=== PATIENT | male | born 1960 | race Caucasian/White ===

== ENCOUNTER → 2020-07-09 10:13 | Outpatient (CLI) | payer BC, SELFPAY ==
[2020-07-09 11:05] LABS: COVID19 -Nasal RAPID Negative (Negative)
== END ==
PROVIDERS: Visit Provider Student in an Organized Health Care Education/Training Program
DX: Z01.812 Encounter for preprocedural laboratory examination (principal); Z20.822 Contact with and (suspected) exposure to COVID-19
CPT/HCPCS: 87635

== ENCOUNTER 2020-07-11 08:27 | Day surgery (SDC) | payer BC, SELFPAY ==
[2020-07-05 08:57] VITALS: BMI 32.3
[2020-07-11] VITALS (13 sets, daily range): BP systolic 107–152; BP diastolic 63–87; PULSE 56–83; RESP 12–17; TEMP 36.2–36.9; O2SAT 95–98; BMI 31.5
--- NOTE | 2020-07-11 07:35 | DI.RAD.S_ITS ---
PROCEDURE: XR KNEE RT 1TO2V INDICATIONS: total right knee TECHNIQUE: 2 view(s) of the knee acquired. COMPARISON: None. FINDINGS: Bones: Patient is status post knee joint arthroplasty. Hardware components are in expected positions. Visualized bony structures are intact. Soft tissues: Overlying postoperative changes are noted. IMPRESSION: Expected alignment Dictated by: Jagdish Campos M.D. on 07/11/2020 at 13:34 Approved by: Jagdish Campos M.D. on 07/11/2020 at 13:34
[2020-07-11] MEDS: ACETAMINOPHEN 325 MG TABLET 975 MG PO (09:17)
[2020-07-11] MEDS: CELECOXIB 200 MG CAPSULE PO (09:18)
[2020-07-11] MEDS: LACTATED RINGERS 1,000 ML 42 ML IV ×2 (09:25→11:58)
--- NOTE | 2020-07-11 09:57 | PM.PREOP ---
Pre-operative Note COVID-19 COVID-19 status: Negative Result date/Date tested (Pos, Neg/Pending): 07/09/20 Interval Note History & Physical reviewed/Exam performed by Physician: Yes Changes to H&P: No H&P completed within 30 days and has changed as indicated here:: Plan for R TKA
--- NOTE | 2020-07-11 10:21 | SUR.PREOP ---
[] 1006 - Monitoring initiated and maintained throughout procedure. O2 at 2LNC per Dr Arteaga instructions. Medications given by Dr Arteaga. 1012 - Time out completed for right adductor canal block. 1017 - Injection time. 1018 - Block complete. Patient remained stable throughout procedure. No adverse reactions noted.
[2020-07-11] MEDS: TRANEXAMIC ACID 1,000 MG VIAL 2000 MG INJ ×2 (10:50→12:18)
[2020-07-11] MEDS: CEFAZOLIN 1 GM VIAL 2 GM IV ×2 (10:52→18:54)
--- NOTE | 2020-07-11 11:03 | SUR.OPER ---
Supine on padded OR bed. Pillow under head, arms secured on padded armboards <90 degree abduction. Safety belt across torso. Non-operative leg, Left, secured with tape over blanket over lower leg. Gel pad under Left heel. Operative leg, Right, in control of the surgeon. Dr. Fink padded knee positioner used. Foam padded brace at thigh of operative leg, Right side.
--- NOTE | 2020-07-11 11:11 | PM.PROC.1 ---
Procedures Date/Time Date of procedure: 07/11/20 Time of procedure: 10:10 General Procedure description: Ultrasound guided adductor canal nerve block for post op pain control after right total knee arthroplasty by Dr. Fink. Risk and benefits of procedure discussed with patient. ASA monitoring applied to patient. O2 given via nasal cannula. 2 mg Versed and 100 mcg fentanyl given for procedural sedation. Skin site was prepped with chlorhexidine and allowed to fully dry. Sterile gloves, mask, hat and probe cover were used to maintain sterility. 2% lidocaine and 30ga needle was used to make a small skin wheal at needle insertion site. Under ultrasound guidance, a 21ga 100mm Pajunk needle was directed into the adductor canal near femoral artery and saphenous nerve at the level of mid thigh. Patient reported no parasthesias. After negative aspiration, 20 mL 0.5% ropivicaine and 10mg dexamethasone were injected around saphenous nerve. Patient tolerated procedure well.
[2020-07-11] MEDS: KETOROLAC 30 MG/ML VIAL IV (11:12)
[2020-07-11] MEDS: MORPHINE 4 MG/ML INJ INJ (11:12)
[2020-07-11] MEDS: ROPIVACAINE 0.5% PF 5 MG/ML 20ML VIAL 10 ML INJ (11:14)
[2020-07-11] MEDS: POVIDONE-IODINE SPONGE STICKS 1 APPLIC TOP (11:18)
--- NOTE | 2020-07-11 12:29 | PM.OP.1 ---
Operative Date/Time/Diagnoses Date of procedure: 07/11/20 Time of procedure: 12:29 Pre-op diagnosis: right knee OA Post-op diagnosis: same Procedure & Clinicians Procedure: Right total knee arthroplasty Same procedure as scheduled: Yes Indications: Right knee osteoarthritis resistant to further conservative measures Surgeon: Merlin Fink Vacuum Tank Tender: Juan Alberto Ramirez Anesthesia Type: General and Spinal Operative Notes Findings: Right knee osteoarthritis with overall valgus alignment. [id number] articulation of the lateral compartment as well as the patellofemoral compartment. Large osteophytes throughout the knee. Closure Type: primary Specimen(s): none sent Prosthetic devices, grafts, tissues, transplants, or devices: Hernández and nephew Journey 2 BCS right size 6 femur Right size 7 journey tibial base plate Right size 7-8 9 mm thick Journey 2 BCS polyethylene 32 mm oval Josefina 2 patellar button Estimated Blood Loss (mL): 100 Blood products transfused: none Tourniquet time (min): 58 Procedure in detail: Patient was met in the preoperative holding area where the site and side of surgery marked by . Informed consent had been reviewed in clinic but was not translated over the hospital therefore informed consent was again reviewed the preoperative holding area all last minute questions were answered informed consent was signed. Patient was then brought back into the operating room where he was induced under general anesthesia a nonsterile tourniquet was placed on the right thigh and the right lower extremity then prepped and draped in normal sterile fashion. A surgical time-out was performed verifying the site and side of surgery as well as the name of the patient. The right lower extremity was then exsanguinated using Esmarch and tourniquet was inflated 250 mmHg. A curvilinear incision over the anterior aspect of the knee which incorporated a prior medial incision was made in the skin using 10. Blade. A large lateral flap was then elevated and then the medial parapatellar arthrotomy was then performed. Hoffa's fat pad was removed it was noted that quite a bit of the patellar tendon Hoffa's fat pad was scarred down to the anterior aspect the tibia this was freed up. A medial peel was then performed. The ACL and PCL were then removed after removing osteophytes from the intercondylar notch using an osteotome. [place]'s line was then marked using electrocautery. A drill was then used to enter the femoral and tibial canals respectively. Intramedullary miri was then placed inside the femur and the 5 degree cutting block was placed on for the right side. This was pinned in neutral position initial cut was deemed to be too small and so 2 mm extra were taken from the distal femur cut. Next intramedullary miri was then placed inside the tibial canal and the outrigger was then used to place the tibial cutting jig drop miri was used to verify varus valgus alignment this was pinned into place. The tibial cut was then performed and the tibial piece was then removed. Medial meniscus was then removed this point. The lateral meniscus had been removed during prior surgeries. The knee was brought into full extension and 9 mm extension block fit the extension space nicely. The was then brought into flexion and the gap bedspread cutter hand was then used and compared to Whitesides line. This was then drilled for a size 3-10 blocks. Gap bedspread cutter hand was then removed and the sizing block was then placed size the femur was sized to size 6. The drill holes were then compared to the Sizer block drill holes these were similar. The size 6 5 in 1 cutting block was then malleted onto the femur and pinned in place. The 5 in 1 cuts were then made sequentially. After this was completed the cutting block was removed bony fragments removed the size 6 right trial was then placed on the femur and the notch was then prepared for the PCS component. Once this was completed the gait was placed inside the intercondylar notch and a size 6 tibial base plate with a 9 mm thick polyethylene was then trialed. Knee had good stability through extension mid flexion and flexion range of motion. Knee was able to achieve full extension. Tibial base plate rotation was marked using a floating technique. The patella was then cut using a freehand technique and sized to size 32 mm patellar button this was then drilled for and a trial button was placed the knee was brought through range of motion with good patellar tracking. All trial components were then removed the tibial base plate was then replaced and was noted this time that we could upsize to a size 7 tibial base plate a size 7 tibial base plate was then selected and pinned into place and the keel was then drilled and punched for. Local anesthetic was then infiltrated in the periarticular soft tissues. Pulse lavage was then used to clean the cut surfaces of the femur tibia and patella. These were then thoroughly dried. Cement was then mixed. Cement was then finger packed into the keel hole as well as the cut surface of the tibia and the underside of the tibial base plate this was then malleted into place and excess cement was removed. Cement was then packed onto the cut surface of the femur with exception the posterior condylar cut and cement was placed onto the feet of the femoral component malleted into place excess cement was then removed. The trial size 9 thick the CS was then placed knee was brought into full extension ankles held in internal rotation cement was then packed on the cut surface of the patella as well as placed in the patellar button the patellar button was then clamped into place and excess cement was removed. At this point Betadine solution was placed into the knee the tourniquet was let down at 58 minutes of time. After several minutes the Betadine solution was lavaged with copious normal saline the cement was allowed to fully cure prior to manipulation of the knee. Once cement was fully cured we looked for any excess cement none was found. We had good stability with this size 9 thick polyethylene and a size 7 right 9 mm thick B CS polyethylene was selected and placed onto the tibia making sure that the medial and lateral tabs were well engaged. Hemostasis was achieved using electrocautery. The medial parapatellar arthrotomy was closed using 1. Vicryl in an interrupted fashion followed by running Quill suture followed by 2 Vicryl in interrupted fashion subcutaneous layer followed by running 3-0 Stratafix and subcuticular layer followed by Dermabond and Aquacel dressing. Complications: none Post-operative Condition: stable Disposition: PACU Plan for aftercare: 24 hours post-op abx, WBAT RLE, ASA 81mg BID for 6 weeks for DVT prophylaxis
--- NOTE | 2020-07-11 13:23 | SUR.PHASEI ---
Pt transfered to room 204 via bed. Pt alert, oriented. Handover at bedside to Elisha THOMAS. Bed in low position. Call light in place. Dressing clean, dry and intact.
[2020-07-11] MEDS: LACTATED RINGERS 1,000 ML 100 ML IV ×2 (13:37→22:34)
[2020-07-11] MEDS: IBUPROFEN 400 MG TABLET PO ×3 (13:39→21:15)
[2020-07-11] MEDS: ACETAMINOPHEN 325 MG TABLET 650 MG PO ×2 (14:38→21:14)
--- NOTE | 2020-07-11 17:00 | PT.IIE ---
Current Diagnoses Unilateral primary osteoarthritis, right knee (07/11/20) Surgery Performed Operation Date: 07/11/20 10:45 Actual Procedures p Total Knee Arthroplasty(Right) - Merlin Fink MD Surgical History (Last Updated 07/05/20 @ 09:12 by Torri Hernandez RN) History of repair of rotator cuff History of vasectomy Hx of arthroscopy of left knee Hx of knee surgery (1968) Hx of tonsillectomy Medical History (Last Updated 07/05/20 @ 09:10 by Torri Hernandez RN) HLD (hyperlipidemia) HTN (hypertension) Osteoarthritis Physical Therapy Inpatient Evaluation/Re-Eval M1 PT/OT-IP Prior Functional Status Start: 07/11/20 18:05 Freq: NEEDED Status: Active Protocol: Document 07/11/20 17:00 AB (Rec: 07/11/20 18:17 AB [id number]) Medical Review Prior Functional Status Medical History Reviewed Yes Communication able to make needs known Mobility and Gait pt stated that he is independent with all mobilities and ambulation without AD Social History Household Members spouse Living Arrangements House Number of Floors (Floors) One Floor Number of Stairs To Enter/Railing? 3 steps to enter without rails Home Environment Standard Height Toilet,Walk in Shower,Tub/Shower Home Equipment Four Wheel Walker,Straight Cane,Crutches Employment Status Data Entry Employed Additional Social History Comment stated that he works in [employer] office pt prefers to use his crutches for mobility M2 PT-IP Current Condition Start: 07/11/20 18:05 Freq: NEEDED Status: Active Protocol: Document 07/11/20 17:00 AB (Rec: 07/11/20 18:17 AB [id number]) Physical Therapy Current Condition Current Condition Evaluation Date 07/11/20 Treatment Diagnosis s/p R TKA; difficulty in walking Onset Date 07/11/20 Weight Bearing Status Weight Bearing Status Weight Bear as Tolerated Allowed Weight Bearing Amount (enter % RLE WBAT or #) (%) M3 PT-IP Subjective Start: 07/11/20 18:05 Freq: NEEDED Status: Active Protocol: Document 07/11/20 17:00 AB (Rec: 07/11/20 18:17 AB [id number]) Subjective Physical Therapy Visit Type Type Initial Evaluation Visit Start Time 17:00 Visit Stop Time 18:00 Total Visit Minutes 60 Number of SPRING SALVAGE WORKER Visits 0 Physical Therapy Visit Comments Patient Comments agreed to do PT; spouse in room Therapy Pain Assessment Pain When Pain Assessed At Rest Pain Present Pain Present Pain Reported Location right knee Intensity 1 Scale Used Numeric (0 - 10) Pain Management Techniques Apply Cold,Distraction, Elevation,Modification of Treatment,Timing of Activity with Medications M4 PT-IP Mobility and Gait Start: 07/11/20 18:05 Freq: NEEDED Status: Active Protocol: Document 07/11/20 17:00 AB (Rec: 07/11/20 18:17 AB [id number]) PT-Bed Mobility Assessment Supine to Sit Supine to Sit Standby Assistance Sit to Supine Sit to Supine Standby Assistance PT-Transfer Assessment Sit to and From Stand Sit to and from Stand Minimal Assistance,1 Person Assistance,Use of Upper Extremities Equipment Transfer Assistive Device Front Wheeled Walker Orthotic/Prosthetic Devices or Brace: No Transfers Transfer Destination Toilet Transfer Technique ambulated using FWW Transfer Ability Level of Assist Minimal Assistance,1 Person Assistance,Use of Upper Extremities Comments Mobility Comments pt stated that he has sensation on BLE but with slight numbness but able to move LE. completed supine to sit SBA. able to sit on EOB SBA. educated on safety and techniques for sit to stand and quads activation in standing. completed sit to stand min A. pt ambulated to the toilet using FWW min A and cues. pt was able to stand using FWW while using the toilet min A. ambulated back to bed using FWW min A. pt went back to bed SBA for sit to supine. positioned in bed. call light and table placed within reach. ice pack provided. reviewed post-op folder with pt. set up caregiver training with pt and spouse for tomorrow @ 930 am . Gait Assessment Gait Gait Assistance Required: Minimum Assistance Distance (Feet) 15 Able to Maintain Weight Bearing Status Yes During Gait Assistive Devices Assistive Device Gait Belt,Front Wheeled Walker Orthotic/Prosthetic Devices or Brace: No Gait Deviations General Gait Pattern Antalgic,Decreased Stride Length,Decreased Feet Clearance Factors Limiting Gait Function Factors Limiting Gait Function Decreased Activity Tolerance, Decreased Sensation,Decreased Strength,Limited Range of Motion,Pain,Poor Balance Comments Gait Comments pls refer to mobility section for details PT-Balance Assessment Sitting Balance and Reactions Static Sitting Balance Ability Good Dynamic Sitting Balance Ability Good Standing Balance and Reactions Static Standing Balance Ability Fair Dynamic Standing Balance Ability Fair Device Used FWW M5 PT-IP Objective Assessments Start: 07/11/20 18:05 Freq: NEEDED Status: Active Protocol: Document 07/11/20 17:00 AB (Rec: 07/11/20 18:17 [id number]) Orientation Orientation/Cognition Level of Alertness Alert Orientation Name,Age,Birthday,Month,Date, Year,Day of Week,Place, Situation Language Function Ability No Deficits Noted Safety Awareness Understands Safety Issues Memory Description No Deficits Noted Gross Range of Motion Lower Extremity ROM Assessment Right Impaired Impairments R knee flexion: ~ 90 deg R knee extension: ~ 10 deg less to 0 Strength Lower Extremity Strength Assessment Right Impaired Hip 4+/5 Knee 4-/5 Coordination Assessment Gross Coordination Gross Coordination WNL Sensation Assessment Sensation Gross Sensation Right LE Impaired Sensation Description Numbness Comments Sensation Comments still c/o slight numbness on RLE Muscle Tone Muscle Tone WNL Yes M6 PT-IP Treatment Start: 07/11/20 18:05 Freq: NEEDED Status: Active Protocol: Document 07/11/20 17:00 AB (Rec: 07/11/20 18:17 [id number]) Physical Therapy Treatment Exercises Exercises Heel Slides Education Education Provided Precautions,Weight Bearing Status,Post-Op Packet,Safety M7 PT-IP Assessment and Plan Start: 07/11/20 18:05 Freq: NEEDED Status: Active Protocol: Document 07/11/20 17:00 AB (Rec: 07/11/20 18:17 [id number]) PT Summary Assessment and Plan Potential Rehabilitation Potential Good Status of Condition at Evaluation Stable Summary Impairments Pain,ROM,Strength,Balance, Coordination,Sensation,Tone, Cognition,Bed Mobility, Transfers,Gait,Activity Tolerance Assessment Summary pt requiring min A with mobility using FWW. still has slight numbness on RLE but was able to ambulate using FWW ~ 15 ft. caregiver training set up at 930 am tomorrow with spouse. will also complete stair climbing training. pt prefers to use his crutches for ambulation and spouse will them tomorrow and will assess safety with use of crutches as well tomorrow. Goals Bed Mobility Goal Independent Transfer Goal Independent,Crutches,Front Wheeled Walker Gait Goal Independent,Crutches,Front Wheel Walker Gait Distance 150 Other Goals up/down 3 steps using crutches SBA Days to Meet Goals 3 Frequency of Treatment Frequency Of Treatment Twice a Day Treatment Plan Physical Therapy Treatment Plan Bed Mobility Training,Transfer Training,Gait Training, Therapeutic Exercise,Balance Retraining,Post Op Education, Discharge Planning,Hot or Cold Pack,Neuromuscular Re-ed, Coordination Retraining,Manual Therapy Other Recommendations and Next Treatment caregiver training 07/12 @ 930 Focus am Precautions Other Precautions RLE WBAT Recommendations To Nursing Amount of Assist Needed 1 Person Assist Discharge Recommendations PT Discharge Recommendations Home with Assistance, Outpatient PT Transportation Needs at Discharge Private Vehicle
--- NOTE | 2020-07-11 20:07 | PC.NURSE ---
pt unable to void. bladder scan 340cc. in and out cath if pt unable to void and bladder scan is 400cc or greater.
[2020-07-11] MEDS: ASPIRIN EC 81 MG TABLET PO (21:15)
[2020-07-11] MEDS: DOCUSATE 100 MG CAPSULE PO (21:15)
[2020-07-11] MEDS: ATORVASTATIN 20 MG TABLET 10 MG PO (21:15)
[2020-07-12] MEDS: IBUPROFEN 400 MG TABLET PO ×3 (00:09→08:43)
[2020-07-12 00:30] VITALS: BP 103/72; PULSE 80; RESP 16; TEMP 36.9; O2SAT 96
[2020-07-12] MEDS: CEFAZOLIN 1 GM VIAL 2 GM IV (02:45)
[2020-07-12 04:12] VITALS: BP 135/82; PULSE 77; RESP 16; TEMP 36.3; O2SAT 97
[2020-07-12 04:22] LABS: Hematocrit 40.8 % (41-53); Hemoglobin 13.8 g/dL (13.5-17.5)
[2020-07-12 07:30] VITALS: BP 127/78; PULSE 70; RESP 16; TEMP 36.7; O2SAT 96
--- NOTE | 2020-07-12 07:31 | PM.DS.1 ---
History of Present Illness History of Present Illness Date Patient Seen: 07/12/20 Time Patient Seen: 07:31 Chief complaint: OPB Narrative: Patient's pain is mild. Denies fever or chills. No nausea/ vomiting. Discharge Providers Provider Discharge Date: 07/12/20 Consults: 07/11/20 07:33 Consult to Anesthesiology Routine Comment: Consulting Provider: Anesthesiologist Reason for consultation: Regional block for post operative pain control 07/11/20 13:26 Consult to Discharge Planning Routine Comment: Consult to Physical Therapy Evaluate & Treat Comment: Physician Instructions: postop TKA protocol Consult to Respiratory Therapy Evaluate & Treat Comment: Physician Instructions: Evaluate and treat Discharge provider: Juan Alberto Ramirez PA-C Summary Hospital Course Discharge Diagnosis: Right knee OA Hospital Course: Right total knee arthroplasty Same procedure as scheduled: Yes Indications: Right knee osteoarthritis resistant to further conservative measures Surgeon: Merlin Fink Journeyman Powerhouse Operator: Juan Alberto Ramirez Anesthesia Type: General and Spinal Operative Notes Findings: Right knee osteoarthritis with overall valgus alignment. [id number]-[id number] articulation of the lateral compartment as well as the patellofemoral compartment. Large osteophytes throughout the knee. Closure Type: primary Specimen(s): none sent Prosthetic devices, grafts, tissues, transplants, or devices: Hernández and nephew Journey 2 BCS right size 6 femur Right size 7 journey tibial base plate Right size 7-8 9 mm thick Journey 2 BCS polyethylene 32 mm oval Josefina 2 patellar button Estimated Blood Loss (mL): 100 Blood products transfused: none Tourniquet time (min): 58 Patient admitted to the hospital for right total knee arthroplasty. Patient consented to the same. Patient taken to the operating room underwent right total knee arthroplasty. Patient back in his room recovering well as in stable condition. Pain is well controlled. Patient does have assistance at home. Patient will be discharged home today in stable condition. Status at Discharge Cognitive/behavioral status at discharge: at baseline, oriented Functional status at discharge: uses cane/walker Overall status at discharge: patient is progressing back to baseline Exam Vital Signs (past 8 hours): - 07/12/20 00:30 07/12/20 04:12 Temperature 98.5 F 97.4 F L Pulse Rate 80 77 Respiratory Rate 16 16 Blood Pressure 103/72 135/82 Pulse Oximetry 96 97 Oxygen Delivery Method Room Air Oxygen Flow Rate 0 Narrative Exam Narrative: 60-year-old male resting comfortably in bed in no apparent distress. Right knee dressing is clean dry intact.. Motor functions intact bilateral lower extremities. Sensation grossly intact to light touch bilateral lower extremities. Objective Labs Result Diagrams: 07/12/20 04:00 Labs: Laboratory Results - last 24 hr 07/12/20 04:00 Hgb 13.8 Hct 40.8 L PFSH Medical History (Updated 07/05/20 @ 09:10 by Torri Hernandez RN) HLD (hyperlipidemia) HTN (hypertension) Osteoarthritis Surgical History (Updated 07/05/20 @ 09:12 by Torri Hernandez RN) History of repair of rotator cuff History of vasectomy Hx of arthroscopy of left knee Hx of knee surgery (1968) Hx of tonsillectomy Social History household members: spouse Smoking Status: Never smoker alcohol intake: current Discharge Assessment & Plan Assessment and Plan Assessment: Patient progressing as expected status post right total knee arthroplasty. Plan of Treatment: Discharge home today in stable condition. Discharge Plan Discharge Plan Patient Disposition: Home Discharge orders & Medications Discharge Orders: Discharge (Order); Ordered 07/12/20 Ordered By: Juan Alberto Ramirez Prescriptions: New acetaminophen 325 mg Tablet 650 mg PO TID Qty: 60 RF: 0 aspirin 81 mg Tablet,Delayed Release (Dr/Ec) 81 mg PO BID Qty: 60 RF: 0 docusate sodium [DOK] 100 mg Capsule 100 mg PO BID Qty: 10 RF: 0 ibuprofen 400 mg Tablet 400 mg PO Q4HR Qty: 60 RF: 0 oxycodone 5 mg Tablet 5 mg PO Q3HR PRN (Reason: Pain, Moderate (4-6)) Qty: 60 RF: 0 Continued sildenafil 25 mg Tablet 25 mg PO DAILY PRN (Reason: Sexual Activity) RF: 0 simvastatin 20 mg Tablet 20 mg PO BEDTIME RF: 0 hydrochlorothiazide 25 mg Tablet 37.5 mg PO QAM RF: 0 lisinopril 40 mg Tablet 40 mg PO DAILY RF: 0 magnesium oxide 400 mg magnesium Tablet 400 mg PO DAILY RF: 0 Discontinued ibuprofen 200 mg Tablet 400 mg PO DAILY RF: 0 Follow up/Referrals: Merlin Fink MD [Physician] - (2 wks) Diet/Activity/Treatments Diet: Diet as Tolerated Activity: Weight-bearing as tolerated Cold/Heat Therapy: Apply ice to the knee as needed Skin/Wound/Dressing Care Report to your healthcare provider any signs of infection, such as:: chills, fever, increased pain, unusual drainage and unusual redness Dressing: Keep clean and dry. May remove Isaac wrap in 24-48 hours. Leave dressing in place Visit Report/Discharge Packet Instructions: DI for Knee Replacement Stand Alone Forms: Surgery Discharge Discharge Data Attending Provider: Merlin Fink
[2020-07-12] MEDS: MAGNESIUM OXIDE 400 MG TABLET PO (08:41)
[2020-07-12] MEDS: hydroCHLOROthiazide 25 MG TABLET 37.5 MG PO (08:41)
[2020-07-12 08:42] VITALS: BP 143/76; PULSE 97
[2020-07-12] MEDS: DOCUSATE 100 MG CAPSULE PO (08:42)
[2020-07-12] MEDS: lisinopriL 20 MG TABLET 40 MG PO (08:42)
[2020-07-12] MEDS: ASPIRIN EC 81 MG TABLET PO (08:42)
[2020-07-12] MEDS: OXYCODONE IR 5 MG TABLET PO (08:43)
[2020-07-12] MEDS: ACETAMINOPHEN 325 MG TABLET 650 MG PO (08:43)
--- NOTE | 2020-07-12 08:55 | CM.DANOTE ---
DCP: Case received, EMR reviewed and met with patient. Introduced self and role. Was able to obtain information from patient regarding his baseline activity status prior to his surgery, as well as his current living situation. DCP assessment completed with information currently available. Patient is a 60 year old male who admitted yesterday morning to the care of the orthopedic team. PCP: Nava Yepez, [facility]. Payer: confirmed: [facility] Out of [facility]. Patient came to the hospital via private vehicle for a surgical procedure. He had right total knee arthroplasty. Patient has had history of right knee pain secondary to advanced osteoarthritis. Met with patient in his room. He was sitting up in bed, alert and oriented. Confirmed with him that he resides in [facility] with his spouse, Hilda. He is independent at his baseline, and has been able to drive prior to surgery. Patient also indicated that he does have crutches, has not been using. He lives in a one level home. P: Patient is to be discharged home today after working with P.T. He will be going to outpatient P.T. in [facility]. Adrienne Quesada RN/Catalyst Operator
--- NOTE | 2020-07-12 09:35 | PT.IPTN ---
Current Diagnoses Unilateral primary osteoarthritis, right knee (07/11/20) Surgery Performed Operation Date: 07/11/20 10:45 Actual Procedures p Total Knee Arthroplasty(Right) - Merlin Fink MD Physical Therapy Treatment Note M2 PT-IP Current Condition Start: 07/11/20 18:05 Freq: NEEDED Status: Discharge Protocol: Document 07/11/20 17:00 AB (Rec: 07/11/20 18:17 AB [id number]) Physical Therapy Current Condition Current Condition Evaluation Date 07/11/20 Treatment Diagnosis s/p R TKA; difficulty in walking Onset Date 07/11/20 Weight Bearing Status Weight Bearing Status Weight Bear as Tolerated Allowed Weight Bearing Amount (enter % RLE WBAT or #) (%) M3 PT-IP Subjective Start: 07/11/20 18:05 Freq: NEEDED Status: Discharge Protocol: Document 07/12/20 09:35 AB (Rec: 07/12/20 12:05 AB [email or web address]) Subjective Physical Therapy Visit Type Type Treatment Note Visit Start Time 09:35 Visit Stop Time 10:05 Total Visit Minutes 30 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 Physical Therapy Visit Comments Patient Comments pt is agreeable to do PT; spouse in room Therapy Pain Assessment Pain When Pain Assessed At Rest Pain Present Pain Present Pain Reported Location right knee Intensity 4 Scale Used Numeric (0 - 10) Pain Management Techniques Apply Cold,Modification of Treatment,Re-positioning, Timing of Activity with Medications M4 PT-IP Mobility and Gait Start: 07/11/20 18:05 Freq: NEEDED Status: Discharge Protocol: Document 07/12/20 09:35 AB (Rec: 07/12/20 12:05 AB [email or web address]) PT-Transfer Assessment Sit to and From Stand Sit to and from Stand Standby Assistance Equipment Transfer Assistive Device Gait Belt,Axillary Crutches Orthotic/Prosthetic Devices or Brace: No Comments Mobility Comments pt up and ambulating with FWW in room with spouse. spouse was able obtain FWW for pt but pt still wants to use crutches. adjusted crutches. pt completed sit to stand SBA using crutches and ambulated in the hallway 125 ft SBA. completed up/down steps using crutches SBA. ambulated back to room. caregiver training: educated spouse on providing SBA to pt for safety and agreed. pt is cautious during mobility. pt and spouse with no concerns . Gait Assessment Gait Gait Assistance Required: Standby Assistance Distance (Feet) 125 Able to Maintain Weight Bearing Status Yes During Gait Assistive Devices Assistive Device Gait Belt,Axillary Crutches Orthotic/Prosthetic Devices or Brace: No Gait Deviations General Gait Pattern Decreased Stride Length, Decreased Feet Clearance,Step- to Gait Factors Limiting Gait Function Factors Limiting Gait Function Decreased Activity Tolerance, Decreased Sensation,Decreased Strength,Limited Range of Motion,Poor Balance Stair Climbing Assessment Evaluation Level of Assist On Stairs Standby Assistance Devices Stair Climbing Assistive Devices Axillary Crutches Technique/Endurance Stair Climbing Direction Ascend and Descend Stair Climbing Technique Step to Step Number of Steps Climbed 3 Stair Climbing Set # Repetitions (reps) 1 M5 PT-IP Objective Assessments Start: 07/11/20 18:05 Freq: NEEDED Status: Discharge Protocol: Document 07/11/20 17:00 AB (Rec: 07/11/20 18:17 AB [id number]) Orientation Orientation/Cognition Level of Alertness Alert Orientation Name,Age,Birthday,Month,Date, Year,Day of Week,Place, Situation Language Function Ability No Deficits Noted Safety Awareness Understands Safety Issues Memory Description No Deficits Noted Gross Range of Motion Lower Extremity ROM Assessment Right Impaired Impairments R knee flexion: ~ 90 deg R knee extension: ~ 10 deg less to 0 Strength Lower Extremity Strength Assessment Right Impaired Hip 4+/5 Knee 4-/5 Coordination Assessment Gross Coordination Gross Coordination WNL Sensation Assessment Sensation Gross Sensation Right LE Impaired Sensation Description Numbness Comments Sensation Comments still c/o slight numbness on RLE Muscle Tone Muscle Tone WNL Yes M6 PT-IP Treatment Start: 07/11/20 18:05 Freq: NEEDED Status: Discharge Protocol: Document 07/12/20 09:35 (Rec: 07/12/20 12:05 [email or web address]) Physical Therapy Treatment Education Education Provided Safety M7 PT-IP Assessment and Plan Start: 07/11/20 18:05 Freq: NEEDED Status: Discharge Protocol: Document 07/12/20 09:35 AB (Rec: 07/12/20 12:05 [email or web address]) PT Summary Assessment and Plan Potential Rehabilitation Potential Good Summary Impairments Pain,ROM,Strength,Balance, Coordination,Sensation,Tone, Cognition,Bed Mobility, Transfers,Gait,Activity Tolerance Progress Towards Goals Progressing Toward Goals Assessment Summary pt requiring SBA with mobility using FWW/ crutches. plans to go home later today with spouse to assist him. pt is set up for outpt PT and may go home when medically stable. Goals Bed Mobility Goal Independent Transfer Goal Independent,Crutches,Front Wheeled Walker Gait Goal Independent,Crutches,Front Wheel Walker Gait Distance 150 Other Goals up/down 3 steps using crutches SBA Days to Meet Goals 3 Frequency of Treatment Frequency Of Treatment Twice a Day Treatment Plan Physical Therapy Treatment Plan Bed Mobility Training,Transfer Training,Gait Training, Therapeutic Exercise,Balance Retraining,Post Op Education, Discharge Planning,Hot or Cold Pack,Neuromuscular Re-ed, Coordination Retraining,Manual Therapy Precautions Other Precautions RLE WBAT Recommendations To Nursing Amount of Assist Needed Standby Assistance Discharge Recommendations PT Discharge Recommendations Home with Assistance, Outpatient PT Transportation Needs at Discharge Private Vehicle
--- NOTE | 2020-07-12 11:58 | PC.NURSE ---
DI given to pt and spouse, discussed- activity, weight measures, medications, f/u appts, s/s of infection, s/s of stroke, drsg care and reasons to seek medical attention. Paper prescription for oxycodone included in DI paperwork. All questions answered. Pt dressed and packed belongings independently with assistance of . IV removed, intact, tolerated well. Pt left via w/c to POV assisted by MARIELA.
== END 2020-07-12 11:05 | disposition home or self-care (01) ==
LOC: OR 08:30 → AC 08:31
PROVIDERS: Referring Provider Orthopaedic Surgery Adult Reconstructive Orthopaedic Surgery; Visit Provider Orthopaedic Surgery Adult Reconstructive Orthopaedic Surgery
PROC: 0SRC0JZ Replacement of Right Knee Joint with Synthetic Substitute, Open Approach (ICD-10-PCS; CPT 27447; principal; 2020-07-11 10:45)
DX: M17.11 Unilateral primary osteoarthritis, right knee (principal); M21.061 Valgus deformity, not elsewhere classified, right knee; M25.761 Osteophyte, right knee; E78.5 Hyperlipidemia, unspecified; I10 Essential (primary) hypertension
CPT/HCPCS: 27447; 36415; 73560; 85014; 85018; 97116; 97161; 97530; C1776; J0690; J1885; J2250; J2270; J2274; J2405; J2704; J3010